=== PATIENT | male | born 1970 | race Caucasian/White ===

== ENCOUNTER 2017-12-09 03:13 | Day surgery (SDC) | payer OTHER, BC ==
[~2017-12-09] VITALS: Ht 185.4 cm; Wt 109.3 kg
[~2017-12-09 03:13] MED LIST: ATOR20TA22 PO; DEXL60CA6 PO; LOSA-57 PO; METF-411 PO; METO50TA19 PO; MULT1CAP59 PO; NIFE-13 PO
[2017-12-09 05:34] VITALS: BP 139/108
[2017-12-09] MEDS ORDERED: LIDOCAINE/SOD BICARB 8.4% SYR ID ONE (06:15)
[2017-12-09] MEDS ORDERED: MIDAZOLAM 2 MG/2 ML VIAL IVP PRN (06:15)
[2017-12-09] MEDS ORDERED: ceFAZolin(*) 2GM/D5W 50ML 50 ML IVPB ONE (06:15)
[2017-12-09] MEDS ORDERED: NORMOSOL R SOLN(*) 1000 ML BAG 1,000 ML IV PRN (06:15)
[2017-12-09] MEDS ORDERED: LIDOCAINE 1%MDV(*)200 MG/20 ML 1 ML ONE (06:22)
[2017-12-09] MEDS ORDERED: ROPIVACAINE 0.5% 20 ML VIAL ONE ×2 (06:23)
[2017-12-09] MEDS ORDERED: METOCLOPRAMIDE 10 MG/2 ML SDV ONE (06:24)
[2017-12-09] MEDS ORDERED: ONDANSETRON 4 MG/2 ML VIAL ONE (06:24)
[2017-12-09] MEDS ORDERED: LIDOCAINE MPF 1% 5 ML VIAL ONE (06:24)
[2017-12-09] MEDS ORDERED: PROPOFOL EMUL(*) 10MG/ML 20 ML 20 ML ONE (06:24)
[2017-12-09] MEDS ORDERED: DEXAMETHASONE SOD 4 MG/ML VIAL ONE (06:24)
[2017-12-09] MEDS ORDERED: fentaNYL CITR 100 MCG/2 ML AMP ONE (06:28)
[2017-12-09] MEDS ORDERED: BUPIV/EPI 0.25% 1:200,000 50ML INFIL ONE (06:55)
[2017-12-09] MEDS ORDERED: OXYC-865 PO (09:13)
[2017-12-09] MEDS ORDERED: CEPH500T7 PO (09:14)
[2017-12-09 09:45] VITALS: BP 129/95
[2017-12-09 09:47] VITALS: BP 128/89
--- NOTE | 2017-12-09 14:14 | OPERATIVE REPORT 1 ---
EVENT DATE: December 09, 2017 SURGEON: Aniket Espinosa MD ANESTHESIOLOGIST: Eulalio Cooley MD ANESTHESIA: LMA with interscalene block. INDUSTRIAL PSYCHOLOGIST: Johny Norris PA-C PREOPERATIVE DIAGNOSIS 1. Left shoulder superior labrum anterior and posterior tear. 2. Impingement. POSTOPERATIVE DIAGNOSIS 1. Left shoulder superior labrum anterior and posterior tear. 2. Impingement. 3. Glenohumeral ligament tear, degenerative posterior labral tear. PROCEDURE PERFORMED 1. Shoulder arthroscopy with arthroscopic biceps tenodesis. 2. Extensive debridement, glenohumeral joint. 3. Subacromial decompression acromioplasty. ESTIMATED BLOOD LOSS Minimal. COMPLICATIONS None. DRAINS None. SPECIMENS None. IMPLANTS #2 FiberWire. HISTORY Mr. Celestin is a 47-year-old male with longstanding history of left shoulder pain. He was seen and evaluated in the orthopedic surgery clinic, found to have a SLAP lesion anterior superior labral tear. We discussed risks, benefits , alteratives, possible complications of surgical and nonsurgical intervention with him, and following discussion, he wished to proceed with surgical intervention. DESCRIPTION OF PROCEDURE Patient was brought to the operating room, placed on the operating table in supine position. Proper time out was performed, identifying patient, limb of surgery and surgical procedure. Patient was given preoperative IV antibiotics and underwent interscalene block followed by LMA anesthesia. Patient was then placed in the right lateral decubitus position. Well-padded axillary roll was placed. All lower extremities were well padded. Left upper extremity was prepped and draped in sterile orthopedic fashion. Arm was placed in a suspension device. The shoulder was then insufflated with 40 mL sterile saline. There was no deltoid bursal insufflation. Posterior portal was established. camera was placed interarticularly. Anterior portal was established, and 5 mm cannula was placed in the rotator cuff interval. A probe was placed intraarticularly. It appeared that he had Dorita complex that had torn off the anterior superior labral attachment. This was detached and devoid of anterior superior labral tissue. The biceps anchor was involved in the SLAP lesion and was unstable. The SLAP lesion extended from the 11 o'clock to the about 1:30 position. Again, there was a radial tear through the anterior superior labrum, where the cord-like middle glenohumeral ligament came in and attached. The posterior labrum demonstrated some mild fraying. The axillary pouch was clear with no loose bodies. Humeral head and glenoid were free of major articular cartilage defects. The undersurface of the rotator cuff was in good condition. Subscapularis was intact. The anterior inferior labrum was intact. Once complete, the camera was placed anteriorly. Identical findings were established. The posterior labrum was debrided with shaver. There was some reactive synovitis in the posterior aspect of the shoulder, which was debrided with shaver, and then surface for cauterization. Subscapularis recess demonstrated no loose bodies, and the rotator cuff was in good condition. The camera was then placed posteriorly again. The anterior SLAP lesion, due to the complete radial transection, we elected to proceed with arthroscopic biceps tenodesis, as this would relieve tensioning off the labrum, and there was no good tissue here to repair back down in a normal SLAP repair type fashion. The 18 gauge spinal needle was utilized to relay a #2 FiberWire suture through the long head of the biceps tendon in JAYLEEN technique. Once this was complete, the biceps was released, releasing tension off the superior labral tear. The stump was debrided with shaver, and the remainder of the labrum was relatively stable. The stump of the Bliss complex was debrided with shaver to debulk this so it would not get trapped intraarticularly once this was debrided. All instrumentation was removed. The camera was placed in the subacromial space. The accessory 5 mm anterior and lateral portals were established. The biceps tenodesis sutures were identified and tied arthroscopically. There was fraying of the CA ligament. The bursal tissue was inflammatory in the subacromial space. This was debrided with a shaver on surface for cauterization. The bursal side of the rotator cuff was in excellent condition. The CA ligament was then peeled off the undersurface of the acromion with surface and then a subacromial decompression acromioplasty was performed on the anterior third of the acromion in upward slope in 90/90 technique. All instrumentation was removed. The shoulder was drained, portal sites closed with 4-0 Monocryl, standard postoperative dressing, Cryo/Cuff and UltraSling were applied. Mr. Celestin tolerated the procedure well, was extubated and transferred to the PACU in stable condition. He will be placed on my biceps tenodesis protocol and follow up with me in 10-14 days. MTDD
== END 2017-12-09 09:45 | disposition home or self-care (01) ==
LOC: OR 03:13
PROVIDERS: ATTEND Orthopaedic Surgery
DX: S43.432A Superior glenoid labrum lesion of left shoulder, initial encounter (principal); M75.42 Impingement syndrome of left shoulder; E11.9 Type 2 diabetes mellitus without complications; I10 Essential (primary) hypertension
CPT/HCPCS: 29807; 29822; 36416; 76942; 82948; A4565; J1100; J2001; J2250; J2405; J2704; J2765; J2795; J3010; J0690